=== PATIENT | female | born 1975 | race African-American/Black ===

== ENCOUNTER 2021-05-15 22:49 | Emergency (ER) | payer MEDICAID ==
[~2021-05-15] VITALS: Ht 160 cm; Wt 64.0 kg
[2021-05-16] MEDS ORDERED: HYDROCODONE/ACETAMINOPHEN 5/325MG TABLET PO ONE (01:00)
[2021-05-16] MEDS ORDERED: METHOCARBAMOL 500MG TABLET PO ONE (01:00)
[2021-05-16] MEDS ORDERED: METH-773 MT (03:37)
[2021-05-16] MEDS ORDERED: NAPR-681 MT (03:37)
[2021-05-16 04:15] VITALS: BP 125/74
== END 2021-05-16 04:15 | disposition home or self-care (01) ==
LOC: ER 22:49
DX: M54.59 Other low back pain (principal)
CPT/HCPCS: 72100; 81025; 99283

== ENCOUNTER 2022-03-04 19:34 | Emergency (ER) | payer MEDICAID, OTHER ==
[~2022-03-04] VITALS: Ht 157.5 cm; Wt 69.4 kg
[~2022-03-04 19:34] MED LIST: METH-773 MT; NAPR-681 MT
[2022-03-05] MEDS ORDERED: KETOROLAC 60MG/2ML VIAL IM STA (00:59)
[2022-03-05] MEDS ORDERED: CYCL5TAB PO (02:45)
[2022-03-05] MEDS ORDERED: NAPR-681 PO (02:45)
[2022-03-05 02:57] VITALS: BP 125/78
== END 2022-03-05 02:59 | disposition home or self-care (01) ==
LOC: ER 19:34
DX: S00.93XA Contusion of unspecified part of head, initial encounter (principal); M54.50 Low back pain, unspecified; W01.0XXA Fall on same level from slipping, tripping and stumbling without subsequent striking against object, initial encounter; Y93.89 Activity, other specified; Y92.89 Other specified places as the place of occurrence of the external cause; Y99.8 Other external cause status
CPT/HCPCS: 72100; 81025; 96372; 99283; J1885

== ENCOUNTER 2025-05-03 15:20 | Emergency (ER) | payer OTHER ==
[~2025-05-03] VITALS: Ht 165.1 cm; Wt 185.0 kg
[~2025-05-03 15:20] MED LIST changes: +CYCL5TAB3 PO; +NAPR-681 PO
[2025-05-03 16:34] VITALS: O2SAT 98
[2025-05-03] MEDS: KETOROLAC 30MG/ML VIAL IM ONE (17:45)
[2025-05-03] MEDS ORDERED: DICL100G46 TP (17:45)
[2025-05-03] MEDS ORDERED: LIDO-53 TP (17:45)
[2025-05-03] MEDS ORDERED: IBUP-2028 MT (18:24)
[2025-05-03 18:32] VITALS: BP 147/77; PULSE 82; RESP 16; TEMP 36.6; O2SAT 98
== END 2025-05-03 18:38 | disposition home or self-care (01) ==
LOC: ER 15:20
DX: M25.512 Pain in left shoulder (principal); I10 Essential (primary) hypertension
CPT/HCPCS: 81025; 73030; 96372; 99283; J1885; Z7610; A4565